=== PATIENT | male | born 1990 | race Two or more races ===

== ENCOUNTER 2019-01-08 11:24 | Emergency (ER) | payer OTHER ==
--- NOTE | 2019-01-08 11:51 | EDM.PDOC ---
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 Past medical history: As per history of present illness and as reviewed below otherwise noncontributory. Surgical history: As per history of present illness and as reviewed below otherwise noncontributory. Social history: No reported history of drug or alcohol abuse. Family history: As per history of present illness and as reviewed below otherwise noncontributory. Physical exam: HEENT: Atraumatic, normocephalic, pupils reactive, negative for conjunctival pallor or scleral icterus, mucous membranes moist, throat clear, neck supple, nontender, trachea midline. Lungs: Clear to auscultation, breath sounds equal bilaterally, chest nontender. Heart: S1S2, regular, negative for clicks, rubs, or JVD. Abdomen: Soft, nondistended, nontender. Negative for masses or hepatosplenomegaly. Negative for costovertebral tenderness. Pelvis: Stable nontender. Genitourinary: Deferred. Rectal: Deferred. Extremities: Atraumatic, negative for cords or calf pain. Neurovascular unremarkable. increased pain with straight leg raise on the left to 20 Neuro: Awake, alert, oriented. Cranial nerves II through XII unremarkable. Cerebellum unremarkable. Motor and sensory unremarkable throughout. Exam nonfocal. Diagnostics: [Bar spine CBC CMP UA ] Therapeutics: [ Toradol Phlegm Flexeril ] Impression: [ back pain Sciatic distribution pain on the left ] Definitive disposition and diagnosis as appropriate pending reevaluation and review of above. Left Lower Back Pain Score (Numeric/FACES): 8 - Related Data Allergies Allergy/AdvReac Type Severity Reaction Status Date / Time No Known Allergies Allergy Verified 01/08/19 11:42 Home Meds: Home Meds . [No Known Home Meds] 01/08/19 [History] Past Medical History - Past Health History Medical/Surgical History: Denies Medical/Surgical History - Infectious Disease History Infectious Disease History: Reports: None Social & Family History - Family History Family Medical History: Noncontributory - Tobacco Use Smoking Status *Q: Former Smoker Years of Tobacco use: 2 Packs/Tins Daily: 1 Used Tobacco, but Quit: Yes Month/Year Tobacco Last Used: 1yr - Caffeine Use Caffeine Use: Reports: Coffee - Recreational Drug Use Recreational Drug Use: No ED ROS GENERAL - Review of Systems Review Of Systems: See Below ED EXAM, GENERAL - Physical Exam Exam: See Below Course - Vital Signs Last Recorded V/S: Last Vital Signs Temp 97.5 F 01/08/19 11:43 Pulse 72 01/08/19 11:43 Resp 166 H 01/08/19 11:43 BP 132/63 01/08/19 11:43 Pulse Ox 95 01/08/19 11:43 - Orders/Labs/Meds Labs: Laboratory Tests 01/08/19 01/08/19 01/08/19 Range/Units 12:15 12:28 12:28 WBC 5.74 (4.0-11.0) K/uL RBC 4.96 (4.50-5.90) M/uL Hgb 15.5 (13.0-17.0) g/dL Hct 45.7 (38.0-50.0) % MCV 92.1 (80.0-98.0) fL MCH 31.3 (27.0-32.0) pg MCHC 33.9 (31.0-37.0) g/dL RDW Std Deviation 42.6 (28.0-62.0) fl RDW Coeff of Lucero 13 (11.0-15.0) % Plt Count 223 (150-400) K/uL MPV 10.00 (7.40-12.00) fL Neut % (Auto) 56.5 (48.0-80.0) % Lymph % (Auto) 30.8 (16.0-40.0) % Sharp % (Auto) 11.5 (0.0-15.0) % Eos % (Auto) 0.7 (0.0-7.0) % Baso % (Auto) 0.5 (0.0-1.5) % Neut # (Auto) 3.2 (1.4-5.7) K/uL Lymph # (Auto) 1.8 (0.6-2.4) K/uL Sharp # (Auto) 0.7 (0.0-0.8) K/uL Eos # (Auto) 0.0 (0.0-0.7) K/uL Baso # (Auto) 0.0 (0.0-0.1) K/uL Nucleated RBC % 0.0 /100WBC Nucleated RBCs # 0 K/uL Sodium 142 (136-148) mmol/L Potassium 4.1 (3.5-5.1) mmol/L Chloride 107 (98-107) mmol/L Carbon Dioxide 26.4 (21.0-32.0) mmol/L BUN 7 (7.0-18.0) mg/dL Creatinine 1.1 (0.8-1.3) mg/dL Est Cr Clr Drug Dosing 109.74 mL/min Estimated GFR (MDRD) > 60.0 ml/min Glucose 93 (74-106) mg/dL Calcium 9.0 (8.5-10.1) mg/dL Total Bilirubin 0.5 (0.2-1.0) mg/dL AST 18 (15-37) IU/L ALT 31 (14-63) IU/L Alkaline Phosphatase 63 (46-116) U/L Total Protein 7.3 (6.4-8.2) g/dL Albumin 3.9 (3.4-5.0) g/dL Globulin 3.4 (2.6-4.0) g/dL Albumin/Globulin Ratio 1.1 (0.9-1.6) Urine Color YELLOW Urine Appearance CLEAR Urine pH 7.0 (5.0-8.0) Ur Specific Burns 1.020 (1.001-1.035) Urine Protein NEGATIVE (NEGATIVE) mg/dL Urine Glucose (UA) NEGATIVE (NEGATIVE) mg/dL Urine Ketones NEGATIVE (NEGATIVE) mg/dL Urine Occult Blood NEGATIVE (NEGATIVE) Urine Nitrite NEGATIVE (NEGATIVE) Urine Bilirubin NEGATIVE (NEGATIVE) Urine Urobilinogen 1.0 (<2.0) EU/dL Ur Leukocyte Esterase NEGATIVE (NEGATIVE) Meds: Medications Discontinued Medications Generic Name Dose Route Start Last Admin Trade Name Dora PRN Reason Stop Dose Admin Ketorolac Tromethamine 60 mg 01/08/19 12:44 Toradol IM 01/08/19 12:45 ONETIME ONE Departure - Departure Time of Disposition: 13:23 Disposition: Home, Self-Care 01 Condition: Good Clinical Impression: Low back pain - Discharge Information Referrals: PCP,None [Primary Care Provider] - Forms: ED Department Discharge Additional Instructions: Medication as prescribed Return if symptoms persist or worsen Follow-up with primary care in 2 weeks 48 hours off work 20 pound weight limit recommended follow up with primary care for further restrictions and/or work clearance [facility] [address] [place] [id number] The following information is given to patients seen in the emergency department who are being discharged to home. This information is to outline your options for follow-up care. We provide all patients seen in our emergency department with a follow-up referral. The need for follow-up, as well as the timing and circumstances, are variable depending upon the specifics of your emergency department visit. If you don't have a primary care physician on staff, we will provide you with a referral. We always advise you to contact your personal physician following an emergency department visit to inform them of the circumstance of the visit and for follow-up with them and/or the need for any referrals to a consulting specialist. The emergency department will also refer you to a specialist when appropriate. This referral assures that you have the opportunity for follow-up care with a specialist. All of these measure are taken in an effort to provide you with optimal care, which includes your follow-up. Under all circumstances we always encourage you to contact your private physician who remains a resource for coordinating your care. When calling for follow-up care, please make the office aware that this follow-up is from your recent emergency room visit. If for any reason you are refused follow-up, please contact the [facility] emergency department at and asked to speak to the emergency department charge nurse.
[2019-01-08] MEDS ORDERED: Ketorolac 60 MG/2 ML SDV IM ONE (12:44)
--- NOTE | 2019-01-08 12:47 | CR ---
Lumbar spine: AP, lateral and coned-down lateral view centered to the lumbosacral junction were obtained. Comparison: No previous study. Vertebral body heights and disc spaces are maintained. Vertebral body heights and disc spaces are maintained. Pedicles are intact. Transverse and spinous processes are intact. No subluxation or fracture is appreciated. Sacroiliac joints are within normal limits. Impression: No abnormality is appreciated on 3 view lumbar spine exam. Diagnostic code #1 MTDD
[2019-01-08 13:06] LABS: BLOOD UREA NITROGEN,BUN 7 mg/dL (7.0-18.0); CARBON DIOXIDE,CO2 26.4 mmol/L (21.0-32.0); CHLORIDE,CL 107 mmol/L (98-107); GLUCOSE RANDOM 93 mg/dL (74-106); POTASSIUM,K 4.1 mmol/L (3.5-5.1); SODIUM,NA 142 mmol/L (136-148)
== END 2019-01-08 13:54 | disposition home or self-care (01) ==
LOC: MW.ED 11:24
DX: M54.42 Lumbago with sciatica, left side (principal); Z87.891 Personal history of nicotine dependence
CPT/HCPCS: 36415; 72100; 80053; 81003; 85025; 96372; 99283; J1885

== ENCOUNTER 2020-05-03 06:31 | Day surgery (SDC) | payer BC ==
[~2020-05-03 06:31] MED LIST: Lactated Ringers 1,000 ML IV SCH
--- NOTE | 2020-05-03 07:13 | PCM.PREANE ---
Preanesthetic Assessment - Anesthesia/Transfusion/Family Hx Anesthesia History: No Prior Anesthesia Family History of Anesthesia Reaction: No Transfusion History: No Prior Transfusion(s) Intubation History: Unknown - Review of Systems General: No Symptoms Pulmonary: No Symptoms Cardiovascular: No Symptoms Gastrointestinal: No Symptoms Neurological: No Symptoms Other: Reports: None - Physical Assessment Vital Signs: Last Vital Signs Temp 36.0 C L 05/03/20 06:40 Pulse 68 05/03/20 06:40 Resp 15 05/03/20 06:40 BP 135/82 05/03/20 06:40 Pulse Ox 94 L 05/03/20 06:40 Height: 6 ft Weight: 123.377 kg ASA Class: 2 Mental Status: Alert & Oriented x3 Airway Class: Mallampati = 2 Dentition: Reports: Normal Dentition Thyro-Mental Finger Breadths: 3 ROM/Head Extension: Full Lungs: Clear to Auscultation, Normal Respiratory Effort Cardiovascular: Regular Rate, Regular Rhythm - Allergies Allergies/Adverse Reactions: Allergies Allergy/AdvReac Type Severity Reaction Status Date / Time No Known Allergies Allergy Verified 05/02/20 07:47 - Blood Blood Available: No - Anesthesia Plan Pre-Op Medication Ordered: None - Acknowledgements Anesthesia Type Planned: MAC Pt an Appropriate Candidate for the Planned Anesthesia: Yes Alternatives and Risks of Anesthesia Discussed w Pt/Guardian: Yes Pt/Guardian Understands and Agrees with Anesthesia Plan: Yes PreAnesthesia Questionnaire - Past Health History Medical/Surgical History: Denies Medical/Surgical History HEENT History: Reports: Other (See Below) Other HEENT History: wears glasses Cardiovascular History: Reports: None Respiratory History: Reports: None Gastrointestinal History: Reports: Gastritis, GERD Other Gastrointestinal History: intermittent epigastric pain Genitourinary History: Reports: None Musculoskeletal History: Reports: None Neurological History: Reports: None, Other (See Below) (h/o migraines) Psychiatric History: Reports: Anxiety Endocrine/Metabolic History: Reports: None (36.9), Obesity/BMI 30+ Hematologic History: Reports: None Immunologic History: Reports: None Oncologic (Cancer) History: Reports: None Dermatologic History: Reports: None - Infectious Disease History Infectious Disease History: Reports: None - Past Surgical History Head Surgeries/Procedures: Reports: None HEENT Surgical History: Reports: None Cardiovascular Surgical History: Reports: None Respiratory Surgical History: Reports: None GI Surgical History: Reports: Colonoscopy Male Surgical History: Reports: None Endocrine Surgical History: Reports: None Neurological Surgical History: Reports: None Musculoskeletal Surgical History: Reports: None Oncologic Surgical History: Reports: None Dermatological Surgical History: Reports: None - SUBSTANCE USE Tobacco Use Within Last Twelve Months: Other (See Below) - HOME MEDS Home Medications: Home Meds Omeprazole 20 mg PO DAILY 04/28/20 [History] - CURRENT (IN HOUSE) MEDS Current Meds: Current Medications Lactated Ringer's (Ringers, Lactated) 1,000 mls @ 125 mls/hr IV ASDIRECTED [facility] Last Admin: 05/03/20 06:50 Dose: 125 mls/hr Documented by:
[2020-05-03] MEDS ORDERED: Propofol 200 MG/20 ML SDV ONE (07:15)
--- NOTE | 2020-05-03 08:15 | PCM.OPNOTE ---
- General Post-Op/Procedure Note Date of Surgery/Procedure: 05/03/20 Operative Procedure(s): egd w bx Findings: see [id number] Pre Op Diagnosis: abd pain Post-Op Diagnosis: esophagitis Anesthesia Technique: Moderate Sedation Primary Surgeon: Jonathon Jin Pathology: sent Complications: None Condition: Good
--- NOTE | 2020-05-03 08:42 | PCM.POSTAN ---
POST ANESTHESIA ASSESSMENT - MENTAL STATUS Mental Status: Alert, Oriented - VITAL SIGNS Vital Signs: Last Vital Signs Temp 36.4 C 05/03/20 08:22 Pulse 64 05/03/20 08:22 Resp 14 05/03/20 08:22 BP 117/68 05/03/20 08:22 Pulse Ox 96 05/03/20 08:22 - RESPIRATORY Respiratory Status: Respiratory Rate WNL, Airway Patent, O2 Saturation Stable - CARDIOVASCULAR CV Status: Pulse Rate WNL, Blood Pressure Stable - GASTROINTESTINAL GI Status: No Symptoms - PAIN Pain Score: 0 - POST OP HYDRATION Hydration Status: Adequate & Stable - OBSERVATIONS Free Text/Narrative:: No anesthesia problems
--- NOTE | 2020-05-03 08:43 | PCM48HPAN ---
Post Anesthesia Note - EVALUATION WITHIN 48HRS OF ANESTHETIC Vital Signs in Normal Range: Yes Patient Participated in Evaluation: Yes Respiratory Function Stable: Yes Airway Patent: Yes Cardiovascular Function Stable: Yes Hydration Status Stable: Yes Pain Control Satisfactory: Yes Nausea and Vomiting Control Satisfactory: Yes Mental Status Recovered: Yes Vital Signs: Last Vital Signs Temp 36.4 C 05/03/20 08:22 Pulse 64 05/03/20 08:22 Resp 14 05/03/20 08:22 BP 117/68 05/03/20 08:22 Pulse Ox 96 05/03/20 08:22 - COMMENTS/OBSERVATIONS Free Text/Narrative:: No anesthesia problems
--- NOTE | 2020-05-03 10:25 | OR ---
SURGEON: Jonathon Jin MD DATE OF PROCEDURE: 05/03/2020 PREOPERATIVE DIAGNOSIS: Abdominal pain. POSTOPERATIVE DIAGNOSES: Esophagitis. PROCEDURE PERFORMED: Esophagogastroduodenoscopy with biopsy. PRIMARY SURGEON: Jonathon Jin MD COMPLICATIONS: None. DESCRIPTION OF PROCEDURE: EGD: The patient was taken to the endoscopy room, and with the [employer], Diprivan was administered. A well-lubricated EGD scope was gently inserted through the oropharynx, down the esophagus, passing through the gastroesophageal junction, into the stomach. The mucosa was examined upon the passage. Any etiology will be noted. Once in the stomach, we continued to advance to the distal antrum, passed through the pylorus into the second portion of the duodenum. Again, the mucosa was examined for any abnormality and etiology. The scope was then retrieved back to the stomach and then retroflexed to look at the fundus of the stomach. If a biopsy was indicated, we will biopsy the antrum, body, and gastroesophageal junction. The air will be sucked out while the scope is retrieved to reduce the patient's discomfort. The patient tolerated the procedure well. There were no intraoperative complications. Dr. Jin was present through the whole procedure. Prior to surgery, a time-out had been called, the patient identified, procedure identified and antibiotic administered. FINDINGS: 1. The patient is easily sedated with [employer] and Diprivan, the patient is soundly snoring. 2. Oropharynx and proximal esophagus are free of disease, stricture, or inflammation. Distal esophagus at GE junction at 40 shows flame-like salmon-colored change and at two areas looks like as impending ulcer consistent with esophagitis. The patient also has Schatzki ring. Stomach rugae are normal in appearance. Antrum looks fine. Duodenum looks grossly normal. Retroflexed look at the fundus of stomach, there is no hiatal hernia. Biopsy done at antrum, body, and GE junction at 40. Did it two times, one is above the ring, another one is I guess right at the ring edge and tried to capture the inflamed part too, so two specimens on the GE junction at 40. Sucked out the gas while scope pulling out and during the whole study there is no blood, no food particle, no bile observed. I have also put the patient on 40 mg omeprazole p.o. daily for 6 weeks with one refill. REED / CLARISSA /[id number]
== END 2020-05-03 09:00 | disposition home or self-care (01) ==
LOC: MW.SDS 06:31
PROVIDERS: ATTEND Surgery
DX: K29.50 Unspecified chronic gastritis without bleeding (principal); K82.8 Other specified diseases of gallbladder; K20.90 Esophagitis, unspecified without bleeding; K22.2 Esophageal obstruction; E66.9 Obesity, unspecified; Z68.36 Body mass index [BMI] 36.0-36.9, adult; Z79.899 Other long term (current) drug therapy
CPT/HCPCS: 43239; 88305; 88312; J2704; J7120

== ENCOUNTER 2020-05-05 08:25 | Day surgery (SDC) | payer BC ==
[~2020-05-05 08:25] MED LIST changes: +ceFAZolin 2 GM in Premix Bag 1 BAG IV ONE
[2020-05-05] MEDS ORDERED: fentaNYL 250 MCG/5 ML SDV ONE (08:59)
[2020-05-05] MEDS ORDERED: Rocuronium Bromide 50 MG/5 ML Syringe ONE (08:59)
[2020-05-05] MEDS ORDERED: Lidocaine 2% 5 ML SDV ONE (08:59)
[2020-05-05] MEDS ORDERED: Midazolam 1 MG/ML 2 ML SDV ONE (08:59)
[2020-05-05] MEDS ORDERED: Ondansetron 4 MG/2 ML SDV ONE (08:59)
[2020-05-05] MEDS ORDERED: Scopolamine 1.5 MG Transdermal Patch TRDERM PRN (09:07)
--- NOTE | 2020-05-05 09:07 | PCM.PREANE ---
Preanesthetic Assessment - Anesthesia/Transfusion/Family Hx Anesthesia History: No Prior Anesthesia Family History of Anesthesia Reaction: No Transfusion History: No Prior Transfusion(s) Intubation History: Unknown - Review of Systems General: No Symptoms Pulmonary: No Symptoms Cardiovascular: No Symptoms Gastrointestinal: Abdominal Pain Neurological: No Symptoms Other: Reports: None - Physical Assessment Vital Signs: Last Vital Signs Temp 36.1 C 05/05/20 08:21 Pulse 79 05/05/20 08:21 Resp 15 05/05/20 08:21 BP 115/71 05/05/20 08:21 Pulse Ox 94 L 05/05/20 08:21 Height: 6 ft Weight: 123.377 kg ASA Class: 2 Mental Status: Alert & Oriented x3 Airway Class: Mallampati = 2 Dentition: Reports: Normal Dentition Thyro-Mental Finger Breadths: 3 Mouth Opening Finger Breadths: 3 ROM/Head Extension: Full Lungs: Clear to Auscultation, Normal Respiratory Effort Cardiovascular: Regular Rate, Regular Rhythm - Allergies Allergies/Adverse Reactions: Allergies Allergy/AdvReac Type Severity Reaction Status Date / Time No Known Allergies Allergy Verified 05/02/20 07:47 - Blood Blood Available: No - Anesthesia Plan Pre-Op Medication Ordered: None - Acknowledgements Anesthesia Type Planned: General Anesthesia Pt an Appropriate Candidate for the Planned Anesthesia: Yes Alternatives and Risks of Anesthesia Discussed w Pt/Guardian: Yes Pt/Guardian Understands and Agrees with Anesthesia Plan: Yes PreAnesthesia Questionnaire - Past Health History Medical/Surgical History: Denies Medical/Surgical History HEENT History: Reports: Other (See Below) Other HEENT History: wears glasses Cardiovascular History: Reports: None Respiratory History: Reports: None Gastrointestinal History: Reports: Gastritis, GERD Other Gastrointestinal History: intermittent epigastric pain, gallbladder sludge Genitourinary History: Reports: None Musculoskeletal History: Reports: None Neurological History: Reports: None, Other (See Below) Psychiatric History: Reports: Anxiety Endocrine/Metabolic History: Reports: Obesity/BMI 30+ (BMI 36.9) Hematologic History: Reports: None Immunologic History: Reports: None Oncologic (Cancer) History: Reports: None Dermatologic History: Reports: None - Infectious Disease History Infectious Disease History: Reports: None - Past Surgical History Head Surgeries/Procedures: Reports: None HEENT Surgical History: Reports: None Cardiovascular Surgical History: Reports: None Respiratory Surgical History: Reports: None GI Surgical History: Reports: Colonoscopy Other GI Surgeries/Procedures: colonoscopy on 05/03/20 Male Surgical History: Reports: None Endocrine Surgical History: Reports: None Neurological Surgical History: Reports: None Musculoskeletal Surgical History: Reports: None Oncologic Surgical History: Reports: None Dermatological Surgical History: Reports: None - SUBSTANCE USE Tobacco Use Within Last Twelve Months: Other (See Below) ("ligia") - HOME MEDS Home Medications: Home Meds Omeprazole 20 mg PO DAILY 04/28/20 [History] - CURRENT (IN HOUSE) MEDS Current Meds: Current Medications Lactated Ringer's (Ringers, Lactated) 1,000 mls @ 125 mls/hr IV ASDIRECTED WILD Last Admin: 05/05/20 09:01 Dose: 125 mls/hr Documented by: Discontinued Medications Fentanyl (Sublimaze) Confirm Administered Dose 250 mcg .ROUTE .STK-MED ONE Stop: 05/05/20 09:00 Cefazolin Sodium/Dextrose 2 gm (/ Premix) 50 mls @ 100 mls/hr IV ONETIME ONE Stop: 05/05/20 05:29 Lidocaine (Xylocaine-Mpf 2%) Confirm Administered Dose 5 ml .ROUTE .STK-MED ONE Stop: 05/05/20 09:00 Midazolam HCl (Versed 1 Mg/Ml) Confirm Administered Dose 2 mg .ROUTE .STK-MED ONE Stop: 05/05/20 09:00 Ondansetron HCl (Zofran) Confirm Administered Dose 4 mg .ROUTE .STK-MED ONE Stop: 05/05/20 09:00 Rocuronium Superior (Rocuronium Superior) Confirm Administered Dose 50 mg .ROUTE .STK-MED ONE Stop: 05/05/20 09:00
[2020-05-05] MEDS ORDERED: Octyl 2-Cyanoacrylate 1 Tube ONE (09:08)
[2020-05-05] MEDS ORDERED: Bupivacaine 25%/EPINEPHrine/PF 30 ML ONE (09:08)
[2020-05-05] MEDS ORDERED: Propofol 200 MG/20 ML SDV ONE (09:34)
[2020-05-05] MEDS ORDERED: Glycopyrrolate 0.2 MG/ML SDV ONE (09:35)
[2020-05-05] MEDS ORDERED: Ketorolac 30 MG/ML SDV ONE (09:35)
[2020-05-05] MEDS ORDERED: Sodium Chloride 0.9% 20 ML ONE (09:58)
[2020-05-05] MEDS ORDERED: ceFAZolin 1 GM Vial ONE (09:58)
[2020-05-05] MEDS ORDERED: Acetaminophen 1,000 MG in Premix Bag 1 BAG IV PRN (10:12)
[2020-05-05] MEDS ORDERED: fentaNYL 100 MCG/2 ML SDV ONE (11:43)
[2020-05-05] MEDS: fentaNYL 100 MCG/2 ML SDV IVPUSH PRN ×2 (12:00→12:27)
[2020-05-05] MEDS: HYDROmorphone 2 MG/ML Syringe IVPUSH PRN ×3 (12:16→14:16)
--- NOTE | 2020-05-05 12:20 | PCM.OPNOTE ---
- General Post-Op/Procedure Note Date of Surgery/Procedure: 05/05/20 Operative Procedure(s): lap amy Findings: gb was severely adhered to omentum cw chronic cholecystitis; wall was yellow and green, wall is not thickened; large amt of sludge; surgicell placed at end of surgery for hemostasis.; [id number] Pre Op Diagnosis: acute and chronic cholecystitis Post-Op Diagnosis: Same Anesthesia Technique: General ET Tube Primary Surgeon: Jonathon Jin Pathology: sent Complications: None Condition: Good
[2020-05-05] MEDS ORDERED: Acetaminophen/oxyCODONE 325-5 MG Tab PO PRN (12:22)
--- NOTE | 2020-05-05 12:31 | PCM.POSTAN ---
POST ANESTHESIA ASSESSMENT - MENTAL STATUS Mental Status: Alert, Oriented - VITAL SIGNS Vital Signs: Last Vital Signs Temp 36.4 C 05/05/20 11:53 Pulse 75 05/05/20 12:23 Resp 16 05/05/20 12:23 BP 118/66 05/05/20 12:23 Pulse Ox 100 05/05/20 12:23 - RESPIRATORY Respiratory Status: Respiratory Rate WNL, Airway Patent, O2 Saturation Stable - CARDIOVASCULAR CV Status: Pulse Rate WNL, Blood Pressure Stable - GASTROINTESTINAL GI Status: No Symptoms - PAIN Pain Score: 5 - POST OP HYDRATION Hydration Status: Adequate & Stable - OBSERVATIONS Free Text/Narrative:: No anesthesia problems
--- NOTE | 2020-05-05 13:43 | OR ---
SURGEON: Jonathon Jin MD DATE OF PROCEDURE: 05/05/2020 PREOPERATIVE DIAGNOSIS: Acute on chronic cholecystitis. POSTOPERATIVE DIAGNOSIS: Acute on chronic cholecystitis. PROCEDURE PERFORMED: Laparoscopic cholecystectomy. PRIMARY SURGEON: Jonathon Jin MD COMPLICATIONS: None. FINDING: Gallbladder was severely adhered to omentum and cannot be even peeled off suggesting of chronic cholecystitis. Wall was yellow and green and is not thickened. Large amount of sludge. Surgicel placed at the end of the surgery for hemostasis. PROCEDURE NOTE: The patient was taken to the operating room and placed in the supine position. After the intubation of general endotracheal anesthesia, the patient's abdomen was prepped and draped in the usual sterile fashion. Using Optiview, a 12 mm trocar was placed supraumbilically and then followed with pneumoperitoneum. A 5 mm trocar was placed in the epigastrium and two 5 mm trocars placed in the right upper quadrant. The placement of the last three trocars was done under direct video supervision. Upon gaining entrance to the abdominal cavity, an extensive examination was then performed. The gallbladder was located and identified and retracted to the dome of the liver at the triangle of Calot. The cystic duct was clipped three more times and then using the endoscopic clip, was transected with placement of the endoscopic clip and transection was performed with care, ensuring the posterior prong of the instruments were clearly visualized prior to exercising the procedure. The gallbladder was dissected using electrocautery out of the liver bed and then removed using endoscopic bag through the umbilical site. The gallbladder was removed en bloc and there was no bile spillage and this was then followed with extensive irrigation until the bile was clear from blood and bile. The trocars were then removed under direct video supervision. The 12 mm umbilical site was then closed with deep stitches using 0 Vicryl followed with proximal stitches using 3-0 Vicryl and Dermabond. The other three trocar sites were closed with 3-0 Vicryl followed with approximation of skin with Dermabond. The patient was then awakened and extubated and transferred to the recovery room in hemodynamically stable condition. At the conclusion of the surgery, before closing the abdominal wound, instrument count and sponge count were done and were correct. The patient tolerated the procedure well and there were no intraoperative complications. Dr. Jin was present through the whole procedure. Just before surgery, a timeout was called. The patient was identified and procedure identified and procedure started. When the gallbladder surgery was finished, irrigation was done and a piece of Surgicel was inserted into the liver fossa for hemostasis. REED ROMO /[id number]
[2020-05-05] MEDS ORDERED: Acetaminophen/oxyCODONE 325-10 MG Tab PO ONE (14:48)
[2020-05-05] MEDS ORDERED: Haloperidol Lactate 5 MG/ML SDV IM ONE (15:22)
--- NOTE | 2020-05-05 16:44 | PCM48HPAN ---
Post Anesthesia Note - EVALUATION WITHIN 48HRS OF ANESTHETIC Vital Signs in Normal Range: Yes Patient Participated in Evaluation: Yes Respiratory Function Stable: Yes Airway Patent: Yes Cardiovascular Function Stable: Yes Hydration Status Stable: Yes Pain Control Satisfactory: Yes Nausea and Vomiting Control Satisfactory: Yes Mental Status Recovered: Yes Vital Signs: Last Vital Signs Temp 36.6 C 05/05/20 12:40 Pulse 67 05/05/20 15:40 Resp 14 05/05/20 15:40 BP 101/57 L 05/05/20 15:40 Pulse Ox 95 05/05/20 15:40 - COMMENTS/OBSERVATIONS Free Text/Narrative:: No anesthesia complications or concerns. Patient discharged home at 1650.
== END 2020-05-05 16:50 | disposition home or self-care (01) ==
LOC: MW.SDS 08:25
PROVIDERS: ATTEND Surgery
DX: K81.2 Acute cholecystitis with chronic cholecystitis (principal); G43.909 Migraine, unspecified, not intractable, without status migrainosus; F17.290 Nicotine dependence, other tobacco product, uncomplicated; K29.70 Gastritis, unspecified, without bleeding; E66.9 Obesity, unspecified; Z79.899 Other long term (current) drug therapy; Z68.36 Body mass index [BMI] 36.0-36.9, adult
CPT/HCPCS: 47562; 88304; A9270; J0131; J0690; J1170; J1630; J2001; J2250; J2405; J2704; J3010; J3490; J7120; 00790; J1885

== ENCOUNTER 2020-08-09 04:26 | Emergency (ER) | payer BC ==
[2020-08-09] MEDS ORDERED: fentaNYL 50 MCG/ML SDV IVPUSH ONE ×3 (04:49→08:22)
[2020-08-09] MEDS ORDERED: Sodium Chloride 0.9% 1,000 ML IV ONE ×3 (04:49→06:45)
[2020-08-09] MEDS ORDERED: Ondansetron 4 MG/2 ML SDV IVPUSH ONE (04:49)
[2020-08-09] MEDS ORDERED: Sodium Chloride 0.9% 2.5 ML Syringe FLUSH PRN (04:49)
[2020-08-09] MEDS ORDERED: Sodium Chloride 0.9% 10 ML Syringe FLUSH PRN (04:49)
[2020-08-09] MEDS ORDERED: Ondansetron 4 MG/2 ML SDV ONE (04:50)
[2020-08-09] MEDS ORDERED: fentaNYL 50 MCG/ML SDV ONE (04:50)
--- NOTE | 2020-08-09 04:53 | EDM.PDOC ---
<Brian Muñiz - Last Filed: 08/09/20 06:19> ED HPI GENERAL MEDICAL PROBLEM - General Chief Complaint: Abdominal Pain Stated Complaint: ABDOMINAL PAIN; VOMITING Time Seen by Provider: 08/09/20 04:47 - History of Present Illness INITIAL COMMENTS - FREE TEXT/NARRATIVE: HISTORY AND PHYSICAL: History of present illness: This is a healthy 30-year-old gentleman with no history for hypertension, diabetes, liver, lung, kidney problems, who is status post cholecystectomy who presents ER today complaining of severe midepigastric abdominal pain and cramping with associated nausea and vomiting that started at 2:00 in the morning. Patient reports that he started having a stomach virus on Friday, 5 days ago, with associated nausea vomiting and diarrhea. Patient reports that he went to see his doctor on Friday and was diagnosed with a stomach bug. Patient reports that yesterday he was feeling much better and his symptoms had almost completely resolved. Patient reports that he was symptom-free until 2 in the morning when he started having severe abdominal pain and cramping and multiple episodes of emesis. Patient denies any recent fevers, shakes, chills. Patient reports multiple episodes of diarrhea this morning since he woke up. Patient has any dysuria, frequency, urgency. Patient has any chest pain or shortness of breath. Patient denies any URI symptoms, cough, congestion, cold. Patient denies any melena or bright red blood per rectum. Patient denies any coffee- ground emesis or hematemesis. Review of systems: As per history of present illness and below otherwise all systems reviewed and negative. Past medical history: As per history of present illness and as reviewed below otherwise noncontributory. Surgical history: As per history of present illness and as reviewed below otherwise noncontributory. Social history: No reported history of drug or alcohol abuse. Family history: As per history of present illness and as reviewed below otherwise noncontributory. Physical exam: This patient was seen and evaluated during the 2019 SARS-CoV-2 novel coronavirus pandemic period. Community viral transmission is ongoing at time of this encounter and the emergency department is operating under pandemic response procedures. Constitutional: Patient is oriented to person, place, and time. Appears well- developed and well-nourished. No distress. HEENT: Moist mucous membranes Head: Normocephalic and atraumatic Eyes: Right eye exhibits no discharge. Left eye exhibits no discharge. No scleral icterus Neck: Normal range of motion. No tracheal deviation present. Cardiovascular: Normal rate and regular rhythm. Pulmonary: Effort normal, no respiratory distress. Abd: Soft, nondistended, no rebound/guarding, no psoas or obturator signs, no tenderness at Mcberney's point, no Pace's sign. Pt does not present with an exam that would be consistent with an acute surgical abdomen at this time, tenderness to palpation midepigastric region. Normoactive bowel sounds. Musculoskeletal: Normal range of motion Neurologic: Alert and oriented to person, place and time. Skin: Town[place], warm and dry. Psychiatric: Normal mood and affect. Behavior is normal. Judgment and thought content normal. Nursing note and vital signs have been reviewed Diagnostics: EKG: As interpreted by ER physician: Mary Kay: Nonspecific ST-T wave abnormalities Normal axis No evidence of ST elevation VA Normal sinus rhythm heart rate of 75 Therapeutics: Fentanyl 50 mcg IV Zofran 4 mg IV NSS x1 L Fentanyl 50 mcg IV x1 NSS x1 L Assessment and plan: This is a 30-year-old gentleman who presents ER today complaining of waking up at 2 in the morning with nausea, vomiting, diarrhea, midepigastric abdominal cramping and pain. Patient was recently diagnosed with a viral gastroenteritis by his PCP on Friday. In the ED the patient will be given fentanyl, Zofran and NSS and will get abdominal labs drawn as well as a CT scan of his abdomen pelvis for further evaluation of the abdominal pain. Patient presentation appears to be most consistent with a gastroenteritis however other sources will need to be ruled out. During the course of the patient's evaluation for abdominal pain, kidney stone, pancreatitis, cholecystitis, diverticulitis, abdominal aortic aneurysm, myocardial infarction, ischemic bowel, ruptured peptic ulcer, ruptured viscus, UTI,and appendicitis as well as other causes of abdominal pain have been considered. 6:20 AM: CT report reviewed. Although patient does have significant amount of fluid in his colon, the appendix does appear to be enlarged at 6.8 mm. There is no periappendiceal inflammation or fat stranding around the appendix. Although patient's presentation does appear to be highly consistent with a gastroenteritis with the midepigastric/periumbilical abdominal cramping and pain as well as the vomiting and diarrhea that he has been having since he woke up, patient's elevated WBC count of 15.6 and his enlarged appendix is concerning for possible early appendicitis. We will consult Dr. James for evaluation and recommendations. 7 AM: Case signed out to oncoming physician pending surgical consultation. Definitive disposition and diagnosis as appropriate pending reevaluation and review of above. Abdomen Pain Score (Numeric/FACES): 10 - Related Data Allergies Allergy/AdvReac Type Severity Reaction Status Date / Time No Known Allergies Allergy Verified 05/02/20 07:47 Home Meds: Home Meds Omeprazole 20 mg PO DAILY 04/28/20 [History] Ondansetron [Zofran ODT] 4 mg PO Q6H PRN 5 Days #20 tab.dis 08/09/20 [Rx] Sucralfate [Carafate] 1 gm PO TIDAC 7 Days #1 cup 08/09/20 [Rx] Past Medical History - Past Health History Medical/Surgical History: Denies Medical/Surgical History HEENT History: Reports: Other (See Below) Other HEENT History: wears glasses Cardiovascular History: Reports: None Respiratory History: Reports: None Gastrointestinal History: Reports: Gastritis, GERD Other Gastrointestinal History: intermittent epigastric pain, gallbladder sludge Genitourinary History: Reports: None Musculoskeletal History: Reports: None Neurological History: Reports: None, Other (See Below) Psychiatric History: Reports: Anxiety Endocrine/Metabolic History: Reports: Obesity/BMI 30+ 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 Model 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: None Hematologic History: Reports: None Immunologic History: Reports: None Oncologic (Cancer) History: Reports: None Dermatologic History: Reports: None - Infectious Disease History Infectious Disease History: Reports: None - Past Surgical History Head Surgeries/Procedures: Reports: None HEENT Surgical History: Reports: None Cardiovascular Surgical History: Reports: None Respiratory Surgical History: Reports: None GI Surgical History: Reports: Cholecystectomy, Colonoscopy Other GI Surgeries/Procedures: colonoscopy on 05/03/20 Male Surgical History: Reports: None Endocrine Surgical History: Reports: None Neurological Surgical History: Reports: None Musculoskeletal Surgical History: Reports: None Oncologic Surgical History: Reports: None Dermatological Surgical History: Reports: None Social & Family History - Family History Family Medical History: No Pertinent Family History - Caffeine Use Caffeine Use: Reports: None - Recreational Drug Use Recreational Drug Use: Yes ED ROS GENERAL - Review of Systems Review Of Systems: See Below ED EXAM, GENERAL - Physical Exam Exam: See Below Departure - Departure Disposition: Home, Self-Care 01 Clinical Impression: Abdominal pain - Discharge Information Instructions: Abdominal Pain, Adult, [id number] Referrals: Martha Medel PA [Primary Care Provider] - Forms: ED Department Discharge Additional Instructions: The following information is given to patients seen in the emergency department who are being discharged to home. This information is to outline your options for follow-up care. We provide all patients seen in our emergency department with a follow-up referral. The need for follow-up, as well as the timing and circumstances, are variable depending upon the specifics of your emergency department visit. If you don't have a primary care physician on staff, we will provide you with a referral. We always advise you to contact your personal physician following an emergency department visit to inform them of the circumstance of the visit and for follow-up with them and/or the need for any referrals to a consulting specialist. The emergency department will also refer you to a specialist when appropriate. This referral assures that you have the opportunity for follow-up care with a specialist. All of these measure are taken in an effort to provide you with optimal care, which includes your follow-up. Under all circumstances we always encourage you to contact your private physician who remains a resource for coordinating your care. When calling for follow-up care, please make the office aware that this follow-up is from your recent emergency room visit. If for any reason you are refused follow-up, please contact the [facility] Emergency Department at and asked to speak to the emergency department charge nurse. Please follow up with your primary care physician. If you do not have a primary care physician, see below: [facility] [address] [place] [id number] [facility] [address] [place] [address] [facility] - General Surgery Professional Building [address] [place] [address], [address] [place] [address] You were seen today for abdominal pain. We did a CAT scan of your abdomen that has some concerns about your appendix but at the been evaluated by the surgeon does not seem to be your appendix and it does not need to be removed at this time. We will like you to keep an eye on it if you have any increased abdominal pain nausea vomiting fevers or chills please return to the ED immediately. We provided the number above you can follow-up with the surgeons. Sepsis Event Note (ED) - Evaluation Sepsis Screening Result: No Definite Risk <Claus Bradshaw - Last Filed: 08/09/20 08:58> Course - Vital Signs Last Recorded V/S: Last Vital Signs Temp 97.2 F 08/09/20 05:54 Pulse 77 08/09/20 05:54 Resp 18 08/09/20 05:54 BP 111/71 08/09/20 05:54 Pulse Ox 98 08/09/20 05:54 - Orders/Labs/Meds Orders: Active Orders 24 hr Category Date Time Status EKG Documentation Completion [RC] AM Care 08/09/20 04:49 Active Sodium Chloride 0.9% [Saline Flush] Med 08/09/20 04:49 Active 10 ml FLUSH ASDIRECTED PRN Sodium Chloride 0.9% [Saline Flush] Med 08/09/20 04:49 Active 2.5 ml FLUSH ASDIRECTED PRN Saline Lock Insert [OM.PC] Stat Oth 08/09/20 04:49 Ordered Medication Orders Sodium Chloride (Sodium Chloride 0.9% 10 Ml Syringe) 10 ml FLUSH ASDIRECTED PRN PRN Reason: Keep Vein Open Last Admin: 08/09/20 06:00 Dose: 10 ml Documented by: SARAI Sodium Chloride (Sodium Chloride 0.9% 2.5 Ml Syringe) 2.5 ml FLUSH ASDIRECTED PRN PRN Reason: Keep Vein Open Last Admin: 08/09/20 06:00 Dose: 2.5 ml Documented by: SARAI Labs: Laboratory Tests 08/09/20 08/09/20 08/09/20 Range/Units 04:35 04:35 05:05 WBC 15.65 H (4.0-11.0) K/uL RBC 5.36 (4.50-5.90) M/uL Hgb 16.8 (13.0-17.0) g/dL Hct 48.6 (38.0-50.0) % MCV 90.7 (80.0-98.0) fL MCH 31.3 (27.0-32.0) pg MCHC 34.6 (31.0-37.0) g/dL RDW Std Deviation 43.7 (28.0-62.0) fl RDW Coeff of Lucero 13 (11.0-15.0) % Plt Count 246 (150-400) K/uL MPV 10.20 (7.40-12.00) fL Neut % (Auto) 75.8 (48.0-80.0) % Lymph % (Auto) 11.8 L (16.0-40.0) % [place] % (Auto) 11.4 (0.0-15.0) % Eos % (Auto) 0.7 (0.0-7.0) % Baso % (Auto) 0.3 (0.0-1.5) % Neut # (Auto) 11.9 H (1.4-5.7) K/uL Lymph # (Auto) 1.8 (0.6-2.4) K/uL [place] # (Auto) 1.8 H (0.0-0.8) K/uL Eos # (Auto) 0.1 (0.0-0.7) K/uL Baso # (Auto) 0.0 (0.0-0.1) K/uL Nucleated RBC % 0.0 /100WBC Nucleated RBCs # 0 K/uL Sodium 144 (136-148) mmol/L Potassium 3.8 (3.5-5.1) mmol/L Chloride 108 H (98-107) mmol/L Carbon Dioxide 21.6 (21.0-32.0) mmol/L BUN 16 (7.0-18.0) mg/dL Creatinine 1.4 H (0.8-1.3) mg/dL Est Cr Clr Drug Dosing 84.68 mL/min Estimated GFR (MDRD) 59.5 ml/min Glucose 139 H (74-106) mg/dL Calcium 9.0 (8.5-10.1) mg/dL Total Bilirubin 0.5 (0.2-1.0) mg/dL AST 20 (15-37) IU/L ALT 35 (14-63) IU/L Alkaline Phosphatase 85 (46-116) U/L Troponin I < 0.050 (0.000-0.056) ng/mL Total Protein 8.3 H (6.4-8.2) g/dL Albumin 4.1 (3.4-5.0) g/dL Globulin 4.2 H (2.6-4.0) g/dL Albumin/Globulin Ratio 1.0 (0.9-1.6) Lipase 70 L (73-393) U/L SARS-CoV-2 RNA (SUSY) NEGATIVE (NEGATIVE) Meds: Medications Generic Name Dose Route Start Last Admin Trade Name Freq PRN Reason Stop Dose Admin Sodium Chloride 10 ml 08/09/20 04:49 08/09/20 06:00 Sodium Chloride 0.9% 10 Ml Syringe FLUSH 10 ml ASDIRECTED PRN Administration Keep Vein Open Sodium Chloride 2.5 ml 08/09/20 04:49 08/09/20 06:00 Sodium Chloride 0.9% 2.5 Ml Syringe FLUSH 2.5 ml ASDIRECTED PRN Administration Keep Vein Open Discontinued Medications Generic Name Dose Route Start Last Admin Trade Name Freq PRN Reason Stop Dose Admin Fentanyl 50 mcg 08/09/20 04:49 08/09/20 04:54 Fentanyl 50 Mcg/Ml Sdv IVPUSH 08/09/20 04:50 50 mcg ONETIME ONE Administration Fentanyl Confirm 08/09/20 04:50 08/09/20 04:57 Fentanyl 50 Mcg/Ml Sdv Administered 08/09/20 04:51 Not Given Dose 50 mcg .ROUTE .STK-MED ONE Fentanyl 50 mcg 08/09/20 05:35 08/09/20 05:36 Fentanyl 50 Mcg/Ml Sdv IVPUSH 08/09/20 05:36 50 mcg ONETIME ONE Administration Fentanyl 50 mcg 08/09/20 08:22 08/09/20 08:30 Fentanyl 50 Mcg/Ml Sdv IVPUSH 08/09/20 08:23 50 mcg ONETIME ONE Administration Sodium Chloride 1,000 mls @ 999 mls/hr 08/09/20 04:49 08/09/20 04:54 Normal Saline IV 08/09/20 05:49 999 mls/hr .Bolus ONE Administration Sodium Chloride 1,000 mls @ 999 mls/hr 08/09/20 05:57 08/09/20 06:00 Normal Saline IV 08/09/20 06:57 999 mls/hr .Bolus ONE Administration Sodium Chloride 1,000 mls @ 999 mls/hr 08/09/20 06:45 08/09/20 06:49 Normal Saline IV 08/09/20 07:45 999 mls/hr .Bolus ONE Administration Ketorolac Tromethamine 30 mg 08/09/20 08:22 08/09/20 08:30 Ketorolac 30 Mg/Ml Sdv IVPUSH 08/09/20 08:23 30 mg ONETIME ONE Administration Ondansetron HCl 4 mg 08/09/20 04:49 08/09/20 04:54 Ondansetron 4 Mg/2 Ml Sdv IVPUSH 08/09/20 04:50 4 mg ONETIME ONE Administration Ondansetron HCl Confirm 08/09/20 04:50 08/09/20 04:57 Ondansetron 4 Mg/2 Ml Sdv Administered 08/09/20 04:51 Not Given Dose 4 mg .ROUTE .[facility] ONE - Re-Assessments/Exams Free Text/Narrative Re-Assessment/Exam: 08/09/20 08:55 Patient was seen by general surgery in the ED. At the evaluation does not seem to be his appendix. Patient understands and will follow up with general surgery as outpatient and will be given strict return precautions. Patient here is tolerating p.o. and looks better. Departure - Departure Time of Disposition: 08:55 Condition: Good - Discharge Information *PRESCRIPTION DRUG MONITORING PROGRAM REVIEWED*: Not Applicable *COPY OF PRESCRIPTION DRUG MONITORING REPORT IN PATIENT LUCERO: Not Applicable Sepsis Event Note (ED) - Focused Exam Vital Signs: Vital Signs Temp Pulse Resp BP Pulse Ox 08/09/20 05:54 97.2 F 77 18 111/71 98 08/09/20 05:09 72 18 123/73 100 08/09/20 04:35 96.8 F L 82 18 96/54 L 98
[2020-08-09 05:06] LABS: BLOOD UREA NITROGEN,BUN 16 mg/dL (7.0-18.0); CARBON DIOXIDE,CO2 21.6 mmol/L (21.0-32.0); CHLORIDE,CL 108 mmol/L (98-107); GLUCOSE RANDOM 139 mg/dL (74-106); LIPASE 70 U/L (73-393); POTASSIUM,K 3.8 mmol/L (3.5-5.1); SODIUM,NA 144 mmol/L (136-148)
--- NOTE | 2020-08-09 05:54 | CT ---
INDICATION: Abdominal pain TECHNIQUE: CT abdomen and pelvis without contrast. COMPARISON: None FINDINGS: Lower chest: Unremarkable. Liver: Unremarkable. Spleen: Unremarkable. Pancreas: Unremarkable. Gallbladder and bile ducts: S/p cholecystectomy. Adrenal glands: Unremarkable. Kidneys: Unremarkable. No kidney or ureteral stones and no hydronephrosis. GI tract: Fluid in an otherwise normal appearing colon. The appendix measures 6.8 mm in diameter. No periappendiceal stranding. Vascular structures: Unremarkable. Lymph nodes: Unremarkable. Miscellaneous: Unremarkable. No free air or significant free fluid. Pelvic Organs: Unremarkable. Bones: Unremarkable for age. IMPRESSION: Mildly dilated appendix. No periappendiceal fat stranding. Acute appendicitis cannot be excluded. Fluid in the colon consistent with diarrheal illness. Status post cholecystectomy. Findings discussed with Dr. Muñiz at 5:52 a.m. on August 09, 2020. Please note that all CT scans at this facility use dose modulation, iterative reconstruction, and/or weight-based dosing when appropriate to reduce radiation dose to as low as reasonably achievable. Dictated by Maris Roldan MD @ 08/09/2020 5:52:[address] Maris Roldan @ Aug 09 2020 5:52AM
[2020-08-09] MEDS ORDERED: Ketorolac 30 MG/ML SDV IVPUSH ONE (08:22)
--- NOTE | 2020-08-09 09:43 | PCM.CONS ---
H&P History of Present Illness - General Date of Service: 08/09/20 Admit Problem/Dx: Abdominal pain, nausea, vomiting and diarrhea Source of Information: Patient, Family History Limitations: Reports: No Limitations - History of Present Illness Initial Comments - Free Text/Narative: Patient is a 30-year-old gentleman who presented to the emergency room this morning complaining of epigastric pain, nausea, vomiting and diarrhea. This started over the weekend and he said multiple episodes of nausea, vomiting and diarrhea. No hematemesis. No blood in the stool. Pain has primarily been epigastric. It does not localize anywhere in the abdomen. He did have a laparoscopic cholecystectomy in April of this year and felt well after that. Nobody at home is ill. He denies chills but feels like he has run a fever. He denied any increasing abdominal pain as he was driven to the hospital by his wif stiven. Symptom Onset Date: 08/05/20 Duration of Symptoms: Reports: Day(s): Location: Reports: Abdomen Quality: Reports: Ache Severity: Moderate Improves with: Reports: Rest Worsens with: Reports: Eating, Movement Associated Symptoms: Reports: Fever/Chills, Loss of Appetite, Nausea/Vomiting Abdomen Pain Score (Numeric/FACES): 10 - Related Data Allergies/Adverse Reactions: Allergies Allergy/AdvReac Type Severity Reaction Status Date / Time No Known Allergies Allergy Verified 05/02/20 07:47 Home Medications: Home Meds Omeprazole 20 mg PO DAILY 04/28/20 [History] Ondansetron [Zofran ODT] 4 mg PO Q6H PRN 5 Days #20 tab.dis 08/09/20 [Rx] Sucralfate [Carafate] 1 gm PO TIDAC 7 Days #1 cup 08/09/20 [Rx] Past Medical History - Past Health History Medical/Surgical History: Denies Medical/Surgical History HEENT History: Reports: Other (See Below) Other HEENT History: wears glasses Cardiovascular History: Reports: None Respiratory History: Reports: None Gastrointestinal History: Reports: Gastritis, GERD Other Gastrointestinal History: intermittent epigastric pain, gallbladder sludge Genitourinary History: Reports: None Musculoskeletal History: Reports: None Neurological History: Reports: None, Other (See Below) Psychiatric History: Reports: Anxiety Endocrine/Metabolic History: Reports: Obesity/BMI 30+ 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 Hematologic History: Reports: None Immunologic History: Reports: None Oncologic (Cancer) History: Reports: None Dermatologic History: Reports: None - Infectious Disease History Infectious Disease History: Reports: None - Past Surgical History Head Surgeries/Procedures: Reports: None HEENT Surgical History: Reports: None Cardiovascular Surgical History: Reports: None Respiratory Surgical History: Reports: None GI Surgical History: Reports: Cholecystectomy, EGD Other GI Surgeries/Procedures: EGD on 05/03/20 Male Surgical History: Reports: None Endocrine Surgical History: Reports: None Neurological Surgical History: Reports: None Musculoskeletal Surgical History: Reports: None Oncologic Surgical History: Reports: None Dermatological Surgical History: Reports: None Social & Family History - Family History Family Medical History: No Pertinent Family History - Caffeine Use Caffeine Use: Reports: None - Recreational Drug Use Recreational Drug Use: Yes H&P Review of Systems - Review of Systems: Review Of Systems: See Below General: Reports: Fever, Decreased Appetite. Denies: Chills HEENT: Reports: No Symptoms Pulmonary: Denies: Shortness of Breath, Wheezing Cardiovascular: Denies: Chest Pain, Palpitations Gastrointestinal: Reports: Abdominal Pain, Anorexia, Diarrhea, Decreased Appetite, Nausea, Vomiting. Denies: Black Stool, Bloody Stool Genitourinary: Denies: Dysuria, Frequency, Burning, Pain, Urgency Musculoskeletal: Reports: No Symptoms Skin: Reports: No Symptoms Psychiatric: Denies: Confusion, Depression, Anxiety Neurological: Reports: No Symptoms Hematologic/Lymphatic: Reports: No Symptoms Immunologic: Reports: No Symptoms Exam - Exam Exam: See Below - Vital Signs Vital Signs: Last Vital Signs Temp 97.2 F 08/09/20 05:54 Pulse 63 08/09/20 09:08 Resp 18 08/09/20 09:08 BP 105/51 L 08/09/20 09:08 Pulse Ox 90 L 08/09/20 09:08 Weight: 275 lb - Exam Quality Assessment: No: Supplemental Oxygen General: Alert, Oriented, Cooperative, Moderate Distress HEENT: Conjunctiva Clear, Pupils Equal, Pupils Reactive. No: Scleral Icterus Neck: Supple, Trachea Midline Lungs: Clear to Auscultation, Normal Respiratory Effort. No: Wheezing Cardiovascular: Regular Rate, Regular Rhythm. No: Tachycardia GI/Abdominal Exam: Normal Bowel Sounds, Soft, No Distention, Tender (epigastrium), Other (No right lower quadrant tenderness to palpation or per cussion. Negative Rovsing's sign.). No: Guarding, Rigid, Rebound (Male) Exam: No Hernia Rectal (Males) Exam: Deferred Back Exam: Normal Inspection Extremities: Normal Inspection, Normal Range of Motion Skin: Warm, Dry, Intact Neurological: Cranial Nerves Intact Neuro Extensive - Mental Status: Alert, Oriented x3, Normal Mood/Affect Psychiatric: Alert, Normal Affect, Normal Mood - Patient Data Lab Results Last 24 hrs: Laboratory Results - last 24 hr 08/09/20 08/09/20 08/09/20 Range/Units 04:35 04:35 05:05 WBC 15.65 H (4.0-11.0) K/uL RBC 5.36 (4.50-5.90) M/uL Hgb 16.8 (13.0-17.0) g/dL Hct 48.6 (38.0-50.0) % MCV 90.7 (80.0-98.0) fL MCH 31.3 (27.0-32.0) pg MCHC 34.6 (31.0-37.0) g/dL RDW Std Deviation 43.7 (28.0-62.0) fl RDW Coeff of Lucero 13 (11.0-15.0) % Plt Count 246 (150-400) K/uL MPV 10.20 (7.40-12.00) fL Neut % (Auto) 75.8 (48.0-80.0) % Lymph % (Auto) 11.8 L (16.0-40.0) % [place] % (Auto) 11.4 (0.0-15.0) % Eos % (Auto) 0.7 (0.0-7.0) % Baso % (Auto) 0.3 (0.0-1.5) % Neut # (Auto) 11.9 H (1.4-5.7) K/uL Lymph # (Auto) 1.8 (0.6-2.4) K/uL [place] # (Auto) 1.8 H (0.0-0.8) K/uL Eos # (Auto) 0.1 (0.0-0.7) K/uL Baso # (Auto) 0.0 (0.0-0.1) K/uL Nucleated RBC % 0.0 /100WBC Nucleated RBCs # 0 K/uL Sodium 144 (136-148) mmol/L Potassium 3.8 (3.5-5.1) mmol/L Chloride 108 H (98-107) mmol/L Carbon Dioxide 21.6 (21.0-32.0) mmol/L BUN 16 (7.0-18.0) mg/dL Creatinine 1.4 H (0.8-1.3) mg/dL Est Cr Clr Drug Dosing 84.68 mL/min Estimated GFR (MDRD) 59.5 ml/min Glucose 139 H (74-106) mg/dL Calcium 9.0 (8.5-10.1) mg/dL Total Bilirubin 0.5 (0.2-1.0) mg/dL AST 20 (15-37) IU/L ALT 35 (14-63) IU/L Alkaline Phosphatase 85 (46-116) U/L Troponin I < 0.050 (0.000-0.056) ng/mL Total Protein 8.3 H (6.4-8.2) g/dL Albumin 4.1 (3.4-5.0) g/dL Globulin 4.2 H (2.6-4.0) g/dL Albumin/Globulin Ratio 1.0 (0.9-1.6) Lipase 70 L (73-393) U/L SARS-CoV-2 RNA (SUSY) NEGATIVE (NEGATIVE) Result Diagrams: 08/09/20 04:35 08/09/20 04:35 Sepsis Event Note - Evaluation Sepsis Screening Result: No Definite Risk - Focused Exam Vital Signs: Vital Signs Temp Pulse Resp BP Pulse Ox 08/09/20 09:08 63 18 105/51 L 90 L 08/09/20 08:00 66 18 114/71 96 08/09/20 07:00 78 18 118/68 96 08/09/20 05:54 97.2 F 77 18 111/71 98 08/09/20 05:09 72 18 123/73 100 08/09/20 04:35 96.8 F L 82 18 96/54 L 98 Consult PN Assessment/Plan Procedures: Procedures ASSAY OF TROPONIN QUANT (04/24/20) COMPLETE CBC W/AUTO DIFF WBC (12/03/19) COMPREHEN METABOLIC PANEL (04/24/20) ECHO EXAM OF ABDOMEN (12/03/19) EGD BIOPSY SINGLE/MULTIPLE (05/03/20) EMERGENCY DEPT VISIT (01/08/19) HPYLORI STOOL AG IA (11/30/19) LAPAROSCOPIC CHOLECYSTECTOMY (05/05/20) RBC SED RATE AUTOMATED (12/03/19) ROUTINE VENIPUNCTURE (04/24/20) SARS-COV-2 COVID-19 AMP PRB (05/02/20) SPECIAL STAINS GROUP 1 (05/03/20) THER/PROPH/DIAG INJ SC/IM (01/08/19) TISSUE EXAM BY PATHOLOGIST (05/05/20) TISSUE EXAM BY PATHOLOGIST (05/03/20) URINALYSIS AUTO W/O SCOPE (01/08/19) X-RAY EXAM CHEST 1 VIEW (04/24/20) X-RAY EXAM L-S SPINE 2/3 VWS (01/08/19) (1) Nausea and vomiting in adult SNOMED Code(s): 50524948 Code(s): R11.2 - NAUSEA WITH VOMITING, UNSPECIFIED Priority: High (2) Diarrhea SNOMED Code(s): 46070002 Code(s): R19.7 - DIARRHEA, UNSPECIFIED Priority: Medium Qualifiers: Diarrhea type: unspecified type Qualified Code(s): R19.7 - Diarrhea, unspecified (3) Gastroenteritis SNOMED Code(s): 10661865 Code(s): K52.9 - NONINFECTIVE GASTROENTERITIS AND COLITIS, UNSPECIFIED Priority: High (4) Abdominal pain SNOMED Code(s): 98116359 Code(s): R10.9 - UNSPECIFIED ABDOMINAL PAIN Priority: Medium Qualifiers: Abdominal location: epigastric Qualified Code(s): R10.13 - Epigastric pain Problem List Initiated/Reviewed/Updated: Yes Plan: CT scan of the abdomen was personally reviewed. I do not see any significant dilatation in the appendix, nor any periappendiceal fat stranding. He has no right lower quadrant tenderness to palpation or percussion. I think this most likely represents a gastroenteritis as he has been ill with that for the last 5 days. Certainly, if his symptoms worsen, re-evaluation would be important. He has been seen by Dr. Jin for his cholecystectomy and he could follow up with either Dr. Jin or me.
== END 2020-08-09 09:08 | disposition home or self-care (01) ==
LOC: MW.ED 04:26
DX: R10.13 Epigastric pain (principal); K21.9 Gastro-esophageal reflux disease without esophagitis; E66.9 Obesity, unspecified; Z68.37 Body mass index [BMI] 37.0-37.9, adult; Z20.822 Contact with and (suspected) exposure to COVID-19; Z79.899 Other long term (current) drug therapy
CPT/HCPCS: 36415; 74176; 80053; 83690; 84484; 85025; 87635; 93005; 96374; 96375; 96376; 99284; J1885; J2405; J3010; J7030; 93010; U0002

== ENCOUNTER 2021-07-16 10:47 | Emergency (ER) | payer BC ==
[2021-07-16] MEDS ORDERED: Sodium Chloride 0.9% 1,000 ML IV ONE (11:42)
[2021-07-16] MEDS ORDERED: Ondansetron 4 MG/2 ML SDV IVPUSH ONE (11:42)
[2021-07-16] MEDS ORDERED: Pantoprazole 80 MG in Sodium Chloride 0.9% 10 ML IVPUSH ONE (12:09)
[2021-07-16 12:50] LABS: BLOOD UREA NITROGEN,BUN 13 mg/dL (7.0-18.0); CARBON DIOXIDE,CO2 28.5 mmol/L (21.0-32.0); CHLORIDE,CL 105 mmol/L (98-107); GLUCOSE RANDOM 91 mg/dL (74-106); LIPASE 53 U/L (73-393); POTASSIUM,K 3.5 mmol/L (3.5-5.1); SODIUM,NA 141 mmol/L (136-148)
[2021-07-16] MEDS ORDERED: Iopamidol 755 MG/ML 500 ML Multipack Bottle IVPUSH STA (13:22)
[2021-07-16] MEDS ORDERED: methylPREDNISolone Sodium Succinate 125 MG/2 ML SDV IVPUSH ONE (13:35)
[2021-07-16] MEDS ORDERED: diphenhydrAMINE 50 MG/ML SDV IVPUSH ONE (13:35)
[2021-07-16 14:05] LABS: CORONAVIRUS COVID-19 NAA NEGATIVE (NEGATIVE); INFLUENZA A NAA NEGATIVE (NEGATIVE); INFLUENZA B NAA NEGATIVE (NEGATIVE)
== END 2021-07-16 15:20 | disposition home or self-care (01) ==
LOC: MW.ED 10:47
DX: I88.0 Nonspecific mesenteric lymphadenitis (principal); E66.9 Obesity, unspecified; Z68.34 Body mass index [BMI] 34.0-34.9, adult; Z90.49 Acquired absence of other specified parts of digestive tract; Z20.822 Contact with and (suspected) exposure to COVID-19
CPT/HCPCS: 0240U; 36415; 74177; 80053; 81001; 83690; 85025; 96374; 96375; 99284; C9113; J2405; J3490; J7030; Q9967